=== PATIENT | female | born 1980 | race African-American/Black ===

== ENCOUNTER 2018-09-08 07:49 | Emergency (ER) | payer MEDICAID ==
[~2018-09-08] VITALS: Ht 175.3 cm; Wt 86.4 kg
[~2018-09-08 07:49] MED LIST: BACL10TA PO; GABA-531 PO; TRAM50TA4 PO
[2018-09-08] MEDS: ACETAMINOPHEN 325 MG TABLET PO ONE (08:28)
[2018-09-08 08:43] VITALS: BP 146/79
== END 2018-09-08 09:21 | disposition home or self-care (01) ==
LOC: EDUNIT# 07:49 → EMS 07:51
DX: S13.4XXA Sprain of ligaments of cervical spine, initial encounter (principal); M54.5 Low back pain; F17.210 Nicotine dependence, cigarettes, uncomplicated; V43.52XA Car driver injured in collision with other type car in traffic accident, initial encounter; Y93.89 Activity, other specified; Y92.89 Other specified places as the place of occurrence of the external cause; Y99.8 Other external cause status